=== PATIENT | male | born 1990 | race Caucasian/White ===

== ENCOUNTER 2017-03-30 14:14 | Emergency (ER) | payer OTHER ==
[~2017-03-30] VITALS: Ht 190.5 cm; Wt 134.1 kg
[2017-03-30 14:19] VITALS: TEMP 97.8
[2017-03-30] MEDS ORDERED: BACTRIM DS 8001 TAB PO (14:24)
[2017-03-30] MEDS ORDERED: ROCEPHIN VIA1 G/VIAL IJ (14:25)
[2017-03-30 15:32] LABS: BASO # 0.1 (0.0-0.2); BASO % 0.8 % (0.0-2.0); EOS # 0.2 (0.0-0.7); GRAN # 6.7 (1.4-6.5); GRAN % 69.2 % (42.2-75.2); HEMATOCRIT 47.2 % (42.0-52.0); HEMOGLOBIN 15.7 g/dl (13.5-18.0); LYMPH # 1.6 (1.2-3.4); LYMPH % 16.6 % (20.0-51.0); MEAN CELL VOLUME 88 fl (80.0-100.0); MEAN CORPUSCULAR HEMOGLOBIN 29 pg (27.0-31.0); MEAN CORPUSCULAR HGB CONC 33 g/dl (33.0-37.0); MEAN PLATELET VOLUME 10.3 fl (7.4-10.4); MONO % 10.1 % (1.7-9.3); PLATELET COUNT 294 K/mm3 (130-400); RED BLOOD COUNT 5.35 M/mm3 (4.20-5.60); REDCELL DISTRIBUTION WIDTH-CV 14.6 % (11.5-14.5); WHITE BLOOD COUNT 9.7 K/mm3 (4.8-10.8)
[2017-03-30 16:13] LABS: ADJUSTED CALCIUM 8.9 mg/dL (8.4-10.2); ALBUMIN 3.8 gm/dL (3.5-5.0); BILIRUBIN,TOTAL 0.9 mg/dL (0.0-1.0); C-REACTIVE PROTEIN 6.3 mg/dL (0.0-0.9); CALCIUM 8.7 mg/dL (8.4-10.2); CREATININE, serum 1.3 mg/dL (0.66-1.25); TOTAL PROTEIN 7.1 gm/dL (6.4-8.2)
[2017-03-30] MEDS ORDERED: DOXYCYCLINE HY100 MG PO (16:34)
[2017-03-30 17:02] VITALS: BP 141/86; PULSE 82
== END 2017-03-30 17:03 | disposition home or self-care (01) ==
LOC: COL.ER 14:14
PROVIDERS: Physician Assistant
DX: L03.115 Cellulitis of right lower limb (principal)
CPT/HCPCS: J0696; J7030

== ENCOUNTER 2018-10-05 14:24 | Emergency (ER) | payer OTHER ==
[~2018-10-05] VITALS: Ht 190.5 cm; Wt 143.2 kg
[~2018-10-05 14:24] MED LIST: BACTRIM DS 8001 TAB PO; DOXYCYCLINE HY100 MG PO; ROCEPHIN VIA1 G/VIAL IJ
[2018-10-05 14:27] VITALS: BP 150/77; TEMP 97.5
[2018-10-05 14:54] LABS: BASO # 0.1 (0.0-0.2); BASO % 0.6 % (0.0-2.0); EOS # 0.2 (0.0-0.7); EOS % 2.4 % (0-4.0); GRAN # 4.8 (1.4-6.5); GRAN % 49.1 % (42.2-75.2); LYMPH # 3.8 (1.2-3.4); LYMPH % 39.1 % (20.0-51.0); MEAN CELL VOLUME 90 fl (80.0-100.0); MEAN CORPUSCULAR HGB CONC 34 g/dl (33.0-37.0); MEAN PLATELET VOLUME 10.6 fl (7.4-10.4); MONO # 0.8 (0.1-0.6); MONO % 8.6 % (1.7-9.3); PLATELET COUNT 242 K/mm3 (130-400); RED BLOOD COUNT 6.12 M/mm3 (4.20-5.60); REDCELL DISTRIBUTION WIDTH-CV 13.2 % (11.5-14.5)
[2018-10-05 15:00] LABS: HEMOGLOBIN 18.5 g/dl (13.5-18.0); MEAN CORPUSCULAR HEMOGLOBIN 30 pg (27.0-31.0)
[2018-10-05 15:23] LABS: ALBUMIN 4.4 gm/dL (3.5-5.0); BILIRUBIN,TOTAL 0.5 mg/dL (0.0-1.0); CALCIUM 9.6 mg/dL (8.4-10.2); CREATININE, serum 1.38 mg/dL (0.66-1.25); POTASSIUM 3.7 mmol/L (3.4-5.0); TOTAL PROTEIN 7.1 gm/dL (6.4-8.2)
[2018-10-05] MEDS ORDERED: PERCOCET 325 MG1 TA2 PO (15:25)
[2018-10-05] MEDS ORDERED: FLOMAX 0.40.4 MG/CAP PO (15:25)
[2018-10-05 16:49] LABS: COLLECTION METHOD CLEAN CATCH
[2018-10-05 16:56] LABS: MUCOUS Present /lpf; PH 5 (5-8); SQUAMOUS EPITHELIAL None Seen /hpf; URINE APPEARANCE Hazy; URINE BACTERIA None Seen /hpf; URINE BILIRUBIN Negative (NEGATIVE); URINE BLOOD 3+ (NEGATIVE); URINE COLOR Yellow; URINE GLUCOSE Negative (NEGATIVE); URINE KETONE Negative (NEGATIVE); URINE LEUKOCYTE ESTERASE Negative (NEGATIVE); URINE NITRATE Negative (NEGATIVE); URINE PROTEIN(semi-quant) 1+ (NEGATIVE); URINE RBC 0-2 /hpf; URINE UROBILINOGEN Negative (NEGATIVE)
[2018-10-05] MEDS ORDERED: ZOFRAN 4MG T4 MG/TAB PO (17:04)
[2018-10-05 17:49] VITALS: PULSE 87
== END 2018-10-05 17:49 | disposition home or self-care (01) ==
LOC: COL.ER 14:24
PROVIDERS: Emergency Medicine
DX: N20.2 Calculus of kidney with calculus of ureter (principal); N23 Unspecified renal colic
CPT/HCPCS: J1170; J1885; J2405; J2550; J7030

== ENCOUNTER 2018-10-08 02:56 | Emergency (ER) | payer OTHER ==
[~2018-10-08] VITALS: Ht 190.5 cm; Wt 143.2 kg
[~2018-10-08 02:56] MED LIST changes: +FLOMAX 0.40.4 MG/CAP PO; +PERCOCET 325 MG1 TA2 PO; +ZOFRAN 4MG T4 MG/TAB PO
[2018-10-08 03:03] VITALS: TEMP 97.3
[2018-10-08 03:11] LABS: BASO # 0.1 (0.0-0.2); BASO % 0.6 % (0.0-2.0); EOS # 0.2 (0.0-0.7); EOS % 2.3 % (0-4.0); GRAN # 6.4 (1.4-6.5); GRAN % 68.8 % (42.2-75.2); LYMPH # 1.8 (1.2-3.4); LYMPH % 19.3 % (20.0-51.0); MEAN CELL VOLUME 90 fl (80.0-100.0); MEAN CORPUSCULAR HEMOGLOBIN 30 pg (27.0-31.0); MEAN CORPUSCULAR HGB CONC 34 g/dl (33.0-37.0); MEAN PLATELET VOLUME 10.7 fl (7.4-10.4); MONO # 0.8 (0.1-0.6); MONO % 8.7 % (1.7-9.3); PLATELET COUNT 211 K/mm3 (130-400); RED BLOOD COUNT 5.95 M/mm3 (4.20-5.60); REDCELL DISTRIBUTION WIDTH-CV 13.1 % (11.5-14.5)
[2018-10-08 03:12] LABS: HEMATOCRIT 53.3 % (42.0-52.0)
[2018-10-08 03:20] LABS: ALBUMIN 4.3 gm/dL (3.5-5.0); BILIRUBIN,TOTAL 0.6 mg/dL (0.0-1.0); CALCIUM 9.2 mg/dL (8.4-10.2); CREATININE, serum 1.4 mg/dL (0.66-1.25)
[2018-10-08 04:38] LABS: COLLECTION METHOD CLEAN CATCH
[2018-10-08 04:47] LABS: MUCOUS Present /lpf; PH 5 (5-8); SQUAMOUS EPITHELIAL 0-2 /hpf; URINE APPEARANCE Clear; URINE BACTERIA None Seen /hpf; URINE BILIRUBIN Negative (NEGATIVE); URINE BLOOD 3+ (NEGATIVE); URINE COLOR Yellow; URINE GLUCOSE Negative (NEGATIVE); URINE KETONE Negative (NEGATIVE); URINE LEUKOCYTE ESTERASE Negative (NEGATIVE); URINE NITRATE Negative (NEGATIVE); URINE PROTEIN(semi-quant) Negative (NEGATIVE); URINE RBC >50 /hpf; URINE UROBILINOGEN Negative (NEGATIVE)
[2018-10-08] MEDS ORDERED: PERCOCET 325 MG1 TA2 PO (05:16)
[2018-10-08] MEDS ORDERED: ZOFRAN ODT4 MG PO (05:16)
[2018-10-08 05:30] VITALS: BP 149/72; PULSE 78
[2018-10-09] MEDS ORDERED: MOTRIN 400400 MG/TAB PO (12:35)
[2018-10-09] MEDS ORDERED: BENADRYL50 MG PO (12:37)
[2018-10-09] MEDS ORDERED: MELATONIN1 MG PO (12:37)
== END 2018-10-08 05:34 | disposition home or self-care (01) ==
LOC: COL.ER 02:56
PROVIDERS: Emergency Medicine
DX: N20.1 Calculus of ureter (principal); N23 Unspecified renal colic
CPT/HCPCS: J1170; J1885; J2405; J2550; J7030

== ENCOUNTER 2018-10-09 11:55 | Day surgery (SDC) | payer OTHER ==
[~2018-10-09] VITALS: Ht 190.5 cm; Wt 141.1 kg
[~2018-10-09 11:55] MED LIST changes: +ZOFRAN ODT4 MG PO
[2018-10-09 12:28] VITALS: BP 154/74; PULSE 62; TEMP 98.9
[2018-10-09] MEDS ORDERED: MOTRIN 400400 MG/TAB PO (12:35)
[2018-10-09] MEDS ORDERED: BENADRYL50 MG PO (12:37)
[2018-10-09] MEDS ORDERED: MELATONIN1 MG PO (12:37)
[2018-10-09 16:40] VITALS: BP 163/89; PULSE 74; TEMP 97.5
[2018-10-09 16:55] VITALS: BP 150/105; PULSE 77
[2018-10-09 17:10] VITALS: BP 149/88; PULSE 81
== END 2018-10-09 17:25 | disposition home or self-care (01) ==
LOC: SDCO 11:55
DX: N20.1 Calculus of ureter (principal); Z84.1 Family history of disorders of kidney and ureter
CPT/HCPCS: C1769; J0690; J1100; J2405; J2704; J3010; J7120; Q9967